=== PATIENT | female | born 1985 | race African-American/Black ===

== ENCOUNTER 2020-04-12 16:02 | Emergency (ER) | payer MEDICARE ==
[~2020-04-12] VITALS: Ht 152.4 cm; Wt 54.0 kg
[2020-04-12 16:21] VITALS: BP 103/75
== END 2020-04-12 18:59 | disposition left against medical advice (07) ==
LOC: ER 16:02
DX: Z53.21 Procedure and treatment not carried out due to patient leaving prior to being seen by health care provider (principal)

== ENCOUNTER 2022-01-13 00:35 | Emergency (ER) | payer MEDICARE ==
[~2022-01-13] VITALS: Ht 162.6 cm; Wt 53.5 kg
[2022-01-13] MEDS ORDERED: BACITRACIN ZINC OINT UDPKT TOP ONE (03:00)
[2022-01-13] MEDS ORDERED: LIDOCAINE HCL/EPINEPHRINE 1%-EPI 1:100,000 20 ML VIAL INFIL ONE (03:00)
[2022-01-13] MEDS ORDERED: IBUPROFEN 600MG TABLET PO ONE (03:30)
[2022-01-13] MEDS ORDERED: IBUP-2029 MT (03:31)
[2022-01-13] MEDS ORDERED: SULF1TAB48 MT (03:31)
[2022-01-13 03:58] VITALS: BP 106/61
== END 2022-01-13 05:35 | disposition home or self-care (01) ==
LOC: ER 00:35
DX: L02.415 Cutaneous abscess of right lower limb (principal); Z88.6 Allergy status to analgesic agent; Z88.5 Allergy status to narcotic agent
CPT/HCPCS: 10060; 99283; J3490

== ENCOUNTER 2023-08-03 03:56 | Emergency (ER) | payer MEDICARE ==
[~2023-08-03] VITALS: Ht 160 cm; Wt 68.0 kg
[~2023-08-03 03:56] MED LIST: IBUP-2029 MT; SULF1TAB48 MT
[2023-08-03 03:57] VITALS: O2SAT 98
[2023-08-03] MEDS ORDERED: KETOROLAC 30MG/ML VIAL IM NR (09:00)
[2023-08-03] MEDS ORDERED: DEXAMETHASONE 4MG TABLET PO ONE (09:15)
[2023-08-03] MEDS ORDERED: CIPR2.5D20 LEFTEYE (09:46)
[2023-08-03] MEDS ORDERED: PRED5DRO22 LEFTEYE (09:46)
[2023-08-03] MEDS ORDERED: AMOX1TAB16 MT (09:46)
[2023-08-03 10:50] VITALS: BP 126/78; PULSE 68; RESP 18; TEMP 98.1
== END 2023-08-03 10:51 | disposition home or self-care (01) ==
LOC: ER 04:17
DX: S02.32XA Fracture of orbital floor, left side, initial encounter for closed fracture (principal); Z88.6 Allergy status to analgesic agent; Z88.5 Allergy status to narcotic agent; Y04.0XXA Assault by unarmed brawl or fight, initial encounter; Y93.89 Activity, other specified; Y92.89 Other specified places as the place of occurrence of the external cause; Y99.8 Other external cause status
CPT/HCPCS: 99291; 70486; 81025; 96372; J8540; J1885

== ENCOUNTER 2024-01-28 02:09 | Emergency (ER) | payer MEDICAID, MEDICARE ==
[~2024-01-28] VITALS: Ht 152.4 cm; Wt 55.0 kg
[~2024-01-28 02:09] MED LIST changes: +AMOX1TAB16 MT; +CIPR2.5D20 LEFTEYE; +PRED5DRO22 LEFTEYE
[2024-01-28 02:18] VITALS: O2SAT 99
[2024-01-28 03:15] LABS: BASOPHILS % 0.6 % (0.0-2.0); EOSINOPHILS % 1.5 % (0.0-5.0); HEMATOCRIT. 30.7 % (36.0-48.0); HEMOGLOBIN. 10.4 g/dL (12.0-16.0); LYMPHOCYTES % 25.3 % (20.0-50.0); MEAN CORPUSCULAR HGB CONC 33.8 g/dL (31.0-37.0); MEAN CORPUSCULAR VOLUME 94.6 fL (81.0-99.0); MEAN PLATELET VOLUME 8.5 fl (7.4-10.4); MONOCYTES % 8.5 % (2.0-8.0); NEUTROPHILS % 64.1 % (40.0-76.0); PLATELET 258 x1000/uL (130-400); RED BLOOD CELL COUNT 3.25 mill/uL (4.2-5.4); RED CELL DISTRIBUTION WIDTH 12.7 % (11.6-14.6); WHITE BLOOD COUNT 8.8 x1000/uL (4.5-11.0)
[2024-01-28 03:21] LABS: CHLORIDE 106 mEq/L (98-107); POTASSIUM 3.7 mEq/L (3.5-5.1); SODIUM 136 mEq/L (136-145)
[2024-01-28 03:22] LABS: CALCIUM 8.7 mg/dL (8.7-10.4); CARBON DIOXIDE 22 mEq/L (21-32)
[2024-01-28 03:27] LABS: B-HCG QUANTITATIVE > 1000 mIU/mL (<3); CREATININE 0.5 mg/dL (0.6-1.0); GLUCOSE 89 mg/dL (70-105)
[2024-01-28 03:29] LABS: ALANINE AMINOTRANSFERASE 9 IU/L (10-49); ASPARTATE AMINOTRANSFERASE 16 IU/L (<34); BILIRUBIN TOTAL 0.3 mg/dL (0.1-1.0)
[2024-01-28 03:34] LABS: UREA NITROGEN BLOOD < 5 mg/dL (9-23)
[2024-01-28] MEDS: SODIUM CHLORIDE 0.9% 1,000 ML IV ONE (03:55)
[2024-01-28 04:09] LABS: CLARITY URINE TURBID (CLEAR); COLOR URINE YELLOW (YELLOW); GLUCOSE URINE NEGATIVE (NEGATIVE); KETONES URINE TRACE (NEGATIVE); LEUKOCYTE ESTERASE URINE NEGATIVE (NEGATIVE); NITRITE URINE NEGATIVE (NEGATIVE); OCCULT BLOOD URINE NEGATIVE (NEGATIVE); PH URINE 8.5 (4.5-8.0); PROTEIN URINE NEGATIVE (NEGATIVE); SPECIFIC GRAVITY URINE 1.016 (1.005-1.030)
[2024-01-28 04:18] VITALS: BP 102/62; PULSE 71; RESP 23; TEMP 98.9
[2024-01-28 04:41] LABS: AMORPHOUS SEDIMENT URINE 1+ /lpf; BACTERIA URINE NONE SEEN; RBC URINE 0-2 /hpf (0-2); SQUAMOUS EPITHELIAL CELL URINE FEW /lpf (RARE/1+); WBC URINE 0-2 /hpf (0-2)
== END 2024-01-28 05:33 | disposition home or self-care (01) ==
LOC: ER 02:09
DX: O26.892 Other specified pregnancy related conditions, second trimester (principal); O62.9 Abnormality of forces of labor, unspecified; Z3A.17 17 weeks gestation of pregnancy; Z88.6 Allergy status to analgesic agent; Z88.5 Allergy status to narcotic agent
CPT/HCPCS: 80053; 81003; 84702; 85025; 86850; 86900; 86901; 36415; 76805; 96360; 99284; Z7610 ×2

== ENCOUNTER 2024-09-28 13:55 | Emergency (ER) | payer MEDICAID, OTHER ==
[~2024-09-28] VITALS: Ht 170.2 cm; Wt 69.0 kg
[2024-09-28 14:28] VITALS: O2SAT 97
[2024-09-28] MEDS ORDERED: NAPR-1176 MT (14:29)
[2024-09-28] MEDS ORDERED: CYCL10TA21 MT (14:29)
[2024-09-28 17:38] VITALS: BP 136/75; PULSE 63; RESP 16; TEMP 36.55848; O2SAT 100
== END 2024-09-29 01:47 | disposition home or self-care (01) ==
LOC: ER 13:55
DX: S13.4XXA Sprain of ligaments of cervical spine, initial encounter (principal); S09.90XA Unspecified injury of head, initial encounter; Z98.890 Other specified postprocedural states; V89.2XXA Person injured in unspecified motor-vehicle accident, traffic, initial encounter; Y93.89 Activity, other specified; Y92.89 Other specified places as the place of occurrence of the external cause; Y99.8 Other external cause status
CPT/HCPCS: 99283